=== PATIENT | female | born 1995 | race Two or more races ===

== ENCOUNTER 2020-11-20 18:46 | Emergency (ER) | payer MEDICAID ==
[2020-11-20 19:46] LABS: HCT - HEMATOCRIT 41.3 % (37.0-47.0); HGB - HEMOGLOBIN 13.4 g/dL (12.0-16.0); MEAN CORPUSCULAR HGB CONC 32.4 g/dL (32.0-36.0); MEAN CORPUSCULAR VOLUME 86.2 fL (81.0-99.0); PLT - PLATELET COUNT 436 10^3/uL (130-450); RED BLOOD COUNT 4.79 10^6/uL (4.20-5.40); RED CELL DISTRIBUTION WIDTH 12.8 % (12.0-15.0); WHITE BLOOD COUNT 14.8 x10^3/uL (4.8-10.8)
[2020-11-20 19:47] LABS: MEAN PLATELET VOLUME 9.5 fL (7.9-10.8)
[2020-11-20 19:49] LABS: BASOPHILS % (AUTO) 0.4 %; LYMPHOCYTES % (AUTO) 20.5 %; MONOCYTES # (AUTO) 0.6 10^3/uL (0.0-1.0); MONOCYTES % (AUTO) 3.8 %; NEUTROPHILS # (AUTO) 10.7 10^3/uL (1.5-6.6)
[2020-11-20 19:50] LABS: BASOPHILS # (AUTO) 0.1 10^3/uL (0.0-0.1); EOSINOPHILS # (AUTO) 0.4 10^3/uL (0.0-0.7)
[2020-11-20 20:14] LABS: POTASSIUM 3.6 mmol/L (3.5-5.0)
[2020-11-20 20:15] LABS: ALBUMIN 4.3 g/dL (3.2-5.5); ALBUMIN/GLOBULIN RATIO 1.2 (1.0-2.2); BILIRUBIN,TOTAL 0.7 mg/dL (0.2-1.0); CALCIUM 9.1 mg/dL (8.5-10.3); CREATININE 0.8 mg/dL (0.4-1.0); TOTAL PROTEIN 7.9 g/dL (6.7-8.2)
[2020-11-20 20:25] LABS: CLARITY,URINE CLEAR (CLEAR); LEUKOCYTE ESTERASE, URINE SMALL (NEGATIVE); NITRITE,URINE NEGATIVE (NEGATIVE); PROTEIN,URINE NEGATIVE (NEGATIVE); UROBILINOGEN,URINE 0.2 (NORMAL) E.U./dL (NORMAL)
[2020-11-20 20:26] LABS: BILIRUBIN,URINE NEGATIVE (NEGATIVE); GLUCOSE, URINE (UA) NEGATIVE (NEGATIVE); KETONES,URINE (UA) NEGATIVE (NEGATIVE); OCCULT BLOOD,URINE LARGE (NEGATIVE)
[2020-11-20 20:27] LABS: BACTERIA,URINE Moderate /HPF (None Seen); SQUAMOUS EPITHELIAL CELL,UR MANY Squamous (<= Few); WBC,URINE >25 /HPF (0-5)
[2020-11-20] MEDS ORDERED: cephALEXin 250 MG CAPSULE PO STA (21:02)
--- NOTE | 2020-11-20 21:07 | ED Physician Documentation ---
PD HPI FEMALE - Stated complaint Stated Complaint: FEMALE /OB - Chief complaint Chief Complaint: Abd Pain - History obtained from History obtained from: Patient - History of Present Illness Timing - onset: Today Timing - duration: Days (1) Timing - details: Gradual onset Pain level max: 0 Pain level max: 0 Associated symptoms: Vaginal bleeding, Dysuria, Urinary frequency, Hematuria. No: Fever, Chest/shoulder pain, Abdominal pain, Back pain, Pelvic pain Contributing factors: [employer] History: G (3), P (1) Recently seen: Clinic Review of Systems Constitutional: denies: Fever, Chills GI: denies: Vomiting, Diarrhea Skin: denies: Rash Musculoskeletal: denies: Neck pain, Back pain Neurologic: denies: Headache PD PAST MEDICAL HISTORY - Past Medical History Past Medical History: No - Past Surgical History Past Surgical History: No - Present Medications Home Medications: Ambulatory Orders Medication Instructions Recorded Confirmed Pnv No.121/Iron/Folic Acid 1 each PO DAILY 11/20/20 11/20/20 [ Multivitamin Tablet] cephALEXin [Keflex] 500 mg PO Q6H #20 cap 11/20/20 - Allergies Allergies/Adverse Reactions: Allergies Allergy/AdvReac Type Severity Reaction Status Date / Time shellfish derived Allergy Unknown Verified 11/20/20 18:55 - Social History Does the pt smoke?: No Smoking Status: Never smoker Does the pt drink ETOH?: No Does the pt have substance abuse?: No - Immunizations Immunizations are current?: Yes PD ED PE NORMAL - Vitals Vital signs reviewed: Yes - General General: Alert and oriented X 3, No acute distress - HEENT HEENT: Moist mucous membranes - Neck Neck: Supple, no meningeal sign - Cardiac Cardiac: RRR, Strong equal pulses - Respiratory Respiratory: No respiratory distress, Clear bilaterally - Abdomen Abdomen: Soft, Non tender, Non distended - Back Back: No CVA TTP - Derm Derm: Warm and dry - Neuro Neuro: Alert and oriented X 3 - Psych Psych: Normal mood, Normal affect Results - Vitals Vitals: Oxygen O2 Source Room air - Labs Labs: Laboratory Tests 11/20/20 11/20/20 11/20/20 19:32 19:32 19:32 WBC 14.8 H RBC 4.79 Hgb 13.4 Hct 41.3 MCV 86.2 MCH 28.0 MCHC 32.4 RDW 12.8 Plt Count 436 MPV 9.5 Neut # (Auto) 10.7 H Lymph # (Auto) 3.0 [place] # (Auto) 0.6 Eos # (Auto) 0.4 Baso # (Auto) 0.1 Absolute Nucleated RBC 0.00 Nucleated RBC % 0.0 Sodium 137 Potassium 3.6 Chloride 105 Carbon Dioxide 24 Anion Gap 8.0 BUN 7 Creatinine 0.8 Estimated GFR (MDRD) 86 L Glucose 97 Calcium 9.1 Total Bilirubin 0.7 AST 17 ALT 14 Alkaline Phosphatase 63 Total Protein 7.9 Albumin 4.3 Globulin 3.6 Albumin/Globulin Ratio 1.2 Lipase 36 HCG, Quant 06778.00 Urine Color Urine Clarity Urine pH Ur Specific [place] Urine Protein Urine Glucose (UA) Urine Ketones Urine Occult Blood Urine Nitrite Urine Bilirubin Urine Urobilinogen Ur Leukocyte Esterase Urine RBC Urine WBC Ur Squamous Epith Cells Urine Bacteria Ur Microscopic Review Urine Culture Comments Blood Type 11/20/20 11/20/20 19:32 19:52 WBC RBC Hgb Hct MCV MCH MCHC RDW Plt Count MPV Neut # (Auto) Lymph # (Auto) [place] # (Auto) Eos # (Auto) Baso # (Auto) Absolute Nucleated RBC Nucleated RBC % Sodium Potassium Chloride Carbon Dioxide Anion Gap BUN Creatinine Estimated GFR (MDRD) Glucose Calcium Total Bilirubin AST ALT Alkaline Phosphatase Total Protein Albumin Globulin Albumin/Globulin Ratio Lipase HCG, Quant Urine Color YELLOW Urine Clarity CLEAR Urine pH 7.0 Ur Specific [place] 1.015 Urine Protein NEGATIVE Urine Glucose (UA) NEGATIVE Urine Ketones NEGATIVE Urine Occult Blood LARGE H Urine Nitrite NEGATIVE Urine Bilirubin NEGATIVE Urine Urobilinogen 0.2 (NORMAL) Ur Leukocyte Esterase SMALL H Urine RBC 6-10 H Urine WBC >25 H Ur Squamous Epith Cells MANY Squamous H Urine Bacteria Moderate H Ur Microscopic Review INDICATED Urine Culture Comments NOT INDICATED Blood Type O POSITIVE - Rads (name of study) pelvic OB Radiology: Final report received, EMP read contemporaneously, See rad report (Positive IUP, 6 weeks 2 days. heart rate 122. Small subchorionic bleed. Right corpus luteum cyst) PD MEDICAL DECISION MAKING - ED course Complexity details: reviewed results, re-evaluated patient, considered differential, d/w patient, d/w family ED course: 25-year-old female with a small subchorionic bleed as well as a UTI. She is about 6 weeks . We will have her follow-up with her OB for further care. We will treat the UTI as well. Patient is well-appearing, nontoxic. Afebrile. Patient counseled regarding signs and symptoms for which I believe and urgent re-evaluation would be necessary. Patient with good understanding of and agreement to plan and is comfortable going home at this time This document was made in part using voice recognition software. While efforts are made to proofread this document, sound alike and grammatical errors may occur. Departure - Departure Disposition: 01 Home, Self Care Clinical Impression: Intrauterine UTI (urinary tract infection) Qualifiers: Urinary tract infection type: acute cystitis Hematuria presence: with hematuria Qualified Code(s): N30.01 - Acute cystitis with hematuria Condition: Good Instructions: ED Care, ED UTI Cystitis Female Follow-Up: your,doctor in 3 days [Other] Prescriptions: cephALEXin [Keflex] 500 mg PO Q6H #20 cap Comments: Take all antibiotics until gone. Return if you worsen. Follow up with your doctor for further care. You are about 6 weeks today. Discharge Date/Time: 11/20/20 21:25
[2020-11-20 21:19] VITALS: BP 117/56
--- NOTE | 2020-11-24 15:02 | Ultrasound Report ---
PROCEDURE: Early OB INDICATIONS: early , vaginal bleeding OUTSIDE/PRIOR DATING DATA: Last menstrual period (LMP): Unknown. LMP-based estimated date of delivery (GALINDO): Unknown. First dating scan (date and location): 11/20/2020. Estimated date of delivery (GALINDO) from first dating scan: 07/14/2021. The below data below was generated using the ultrasound GALINDO of 07/14/2021 TECHNIQUE: Real-time scanning was performed of the fetus and maternal pelvic organs, with image documentation. Endovaginal scanning was also performed to better visualize the fetus and maternal ovaries. COMPARISON: None FINDINGS: There is a very early intrauterine with a crown-rump length measuring 0.51 cm, 6 weeks 2 days Embryo: [place]-rump length measures 0.51 cm, 6 weeks 2 days Heart rate: 122 bpm Measurement variability in dating: +/- 4 weeks by LMP, +/- 7 days by mean sac diameter (use before 6 weeks gestation if crown-rump length not able to be measured), +/- 5 days by crown-rump length (6-12 weeks gestation). Maternal organs: A right ovarian corpus luteal cyst measures 1.1 x 1.2 x 1.0 cm. IMPRESSION: Very early intrauterine with a crown-rump length heartbeat measuring 6 weeks 2 days. Above discussed with BON HUGGINS at the time of dictation. Reviewed by: Mj Bañuelos MD on 11/20/2020 10:46 PM PDT Approved by: Mj Bañuelos MD on 11/20/2020 10:46 PM PDT Station ID: [id number]
== END 2020-11-20 21:25 | disposition home or self-care (01) ==
LOC: ED 18:46
DX: O23.91 Unspecified genitourinary tract infection in pregnancy, first trimester (principal); O20.8 Other hemorrhage in early pregnancy; Z3A.01 Less than 8 weeks gestation of pregnancy
CPT/HCPCS: 36415; 80053; 81001; 81003; 83690; 84702; 85025; 86900; 86901; 87086; 99284